=== PATIENT | female | born 1985 | race American Indian/Alaskan Native ===

== ENCOUNTER 2017-05-23 05:39 | Emergency (ER) | payer MEDICAID ==
[2017-05-23 06:57] LABS: Alanine Aminotransferase 9 units/L (7-56); Albumin 3.9 g/dL (3.9-5); BUN/Creatinine Ratio 13; Blood Urea Nitrogen 8 mg/dL (7-17); Calcium 9.3 mg/dL (8.4-10.2); Hemolysis Index 0
[2017-05-23 07:05] LABS: Basophils % (Auto) 0.4 % (0.0-1.8); Eosinophils # (Auto) 0.1 K/mm3 (0.0-0.4); Eosinophils % (Auto) 1.1 % (0.0-4.3); Hematocrit 42.2 % (30.3-42.9); Hemoglobin 13.1 gm/dl (10.1-14.3); Lymphocytes # (Auto) 2.1 K/mm3 (1.2-5.4); Lymphocytes % (Auto) 23.3 % (13.4-35.0); Mean Corpuscular HGB Conc 31 % (30-34); Mean Corpuscular Volume 80 fl (79-97); Monocytes # (Auto) 0.5 K/mm3 (0.0-0.8); Monocytes % (Auto) 5.6 % (0.0-7.3); Platelet Count 344 K/mm3 (140-440); Red Blood Count 5.31 M/mm3 (3.65-5.03); Red Cell Distribution Width 14.5 % (13.2-15.2)
[2017-05-23 07:22] LABS: Bilirubin,Urine NEG (Negative); Blood,Urine MOD (Negative); Color,Urine Yellow (Yellow); Mucus,Urine FEW /HPF; Protein,Urine <15 mg/dL mg/dL (Negative); Urobilinogen,Urine < 2.0 mg/dL (<2.0)
[2017-05-23 07:23] LABS: Mean Corpuscular Hemoglobin 25 pg (28-32)
--- NOTE | 2017-05-23 07:31 | Emergency Department Report ---
HPI - General Chief Complaint: Abdominal Pain Time Seen by Provider: 05/23/17 07:13 - HPI HPI: Room 7 The patient is a 32-year-old female presented with a chief complaint of abdominal pain. Patient states yesterday she developed right lower quadrant abdominal pain has been constant dull and aching in nature. The patient states pain is gradually worsened. Patient denies nausea vomiting or diarrhea. Patient denies fever. Patient does admit to anorexia. Patient denies previous episodes of same pain. The patient currently gives her pain score of 4-5/10. Location: Right lower quadrant Duration: Constant since yesterday Quality: Aching Severity: 4-5/10 Modifying factors: [see above] Context: [see above] Mode of transportation: The patient drove herself to the emergency department and there are no visitors present ED Past Medical Hx - Past Medical History Previous Medical History?: Yes Hx Hypertension: Yes Hx Asthma: Yes - Surgical History Past Surgical History?: No Additional Surgical History: VSD repair as a child - Family History Family history: no significant - Social History Smoking Status: Never Smoker Substance Use Type: None (denies illicit drug use) - Medications Home Medications: Home Medications Medication Instructions Recorded Confirmed Last Taken Type Acetaminophen [Tylenol] 650 mg PO Q4H PRN #50 tablet 06/23/13 Unknown Rx Albuterol Sulfate [Ventolin HFA] 2 puff IH Q6H PRN 06/23/13 06/23/13 Unknown History Metoclopramide HCl [Reglan] 10 mg PO Q6H PRN #20 tablet 06/23/13 Unknown Rx Pnv95/Ferrous Fumarate/FA 1 each PO QDAY #30 tablet 06/23/13 Unknown Rx [ Vitamins] Famotidine [Pepcid] 20 mg PO BID #40 tablet 11/04/13 Unknown Rx Ibuprofen [Motrin] 600 mg PO Q8H PRN #60 tablet 11/04/13 Unknown Rx Ondansetron [Zofran] 4 mg PO Q6HR PRN #20 tablet 11/04/13 Unknown Rx metroNIDAZOLE [Flagyl] 500 mg PO Q8HR #21 tablet 05/23/17 Unknown Rx traMADol [Ultram] 50 mg PO Q6HR PRN #14 tablet 05/23/17 Unknown Rx ED Review of Systems ROS: Stated complaint: RT ABD PAIN Other details as noted in HPI Constitutional: denies: fever Gastrointestinal: abdominal pain, other (anorexia). denies: nausea, vomiting, diarrhea Musculoskeletal: denies: back pain Physical Exam - Physical Exam Vital Signs: Vital Signs 05/23/17 06:12 Temperature 97.6 F Pulse Rate 94 H Respiratory 18 Rate Blood Pressure 134/80 O2 Sat by Pulse 98 Oximetry Physical Exam: GENERAL: The patient is well-developed well-nourished female sitting in chair not appear to be in acute distress HEENT: Normocephalic. Atraumatic. Extraocular motions are intact. Patient has moist mucous membranes. NECK: Supple. Trachea midline CHEST/LUNGS: Clear to auscultation. There is no respiratory distress noted. HEART/CARDIOVASCULAR: Regular. There is no tachycardia. There is no gallop rub or murmur. ABDOMEN: Abdomen is soft, with tenderness to palpation in the right lower quadrant. Patient has normal bowel sounds. There is no abdominal distention. SKIN: There is no rash. There is no edema. There is no diaphoresis. NEURO: The patient is awake, alert, and oriented. The patient is cooperative. The patient has normal speech and gait. MUSCULOSKELETAL: There is trace right CVA tenderness. There is no evidence of acute injury. ED Course Vital Signs 05/23/17 06:12 Temperature 97.6 F Pulse Rate 94 H Respiratory 18 Rate Blood Pressure 134/80 O2 Sat by Pulse 98 Oximetry ED Medical Decision Making - Lab Data Result diagrams: 05/23/17 06:17 05/23/17 06:17 Laboratory Tests 05/23/17 05/23/17 05/23/17 06:17 06:17 06:17 WBC 9.2 RBC 5.31 H Hgb 13.1 Hct 42.2 MCV 80 MCH 25 L MCHC 31 RDW 14.5 Plt Count 344 Lymph % (Auto) 23.3 [place] % (Auto) 5.6 Eos % (Auto) 1.1 Baso % (Auto) 0.4 Lymph # 2.1 [place] # 0.5 Eos # 0.1 Baso # 0.0 Seg Neutrophils % 69.6 Seg Neutrophils # 6.4 Sodium 140 Potassium 4.1 Chloride 101.0 Carbon Dioxide 26 Anion Gap 17 BUN 8 Creatinine 0.6 L Estimated GFR > 60 BUN/Creatinine Ratio 13 Glucose 110 H Calcium 9.3 Total Bilirubin 0.20 AST 13 ALT 9 Alkaline Phosphatase 103 Total Protein 7.5 Albumin 3.9 Albumin/Globulin Ratio 1.1 HCG, Qual Negative Urine Color Urine Turbidity Urine pH Ur Specific [place] Urine Protein Urine Glucose (UA) Urine Ketones Urine Blood Urine Nitrite Urine Bilirubin Urine Urobilinogen Ur Leukocyte Esterase Urine WBC (Auto) Urine RBC (Auto) U Epithel Cells (Auto) Urine Mucus 05/23/17 Unknown WBC RBC Hgb Hct MCV MCH MCHC RDW Plt Count Lymph % (Auto) [place] % (Auto) Eos % (Auto) Baso % (Auto) Lymph # [place] # Eos # Baso # Seg Neutrophils % Seg Neutrophils # Sodium Potassium Chloride Carbon Dioxide Anion Gap BUN Creatinine Estimated GFR BUN/Creatinine Ratio Glucose Calcium Total Bilirubin AST ALT Alkaline Phosphatase Total Protein Albumin Albumin/Globulin Ratio HCG, Qual Urine Color Yellow Urine Turbidity Clear Urine pH 6.0 Ur Specific [place] 1.025 Urine Protein <15 mg/dl Urine Glucose (UA) Neg Urine Ketones Neg Urine Blood Mod Urine Nitrite Neg Urine Bilirubin Neg Urine Urobilinogen < 2.0 Ur Leukocyte Esterase Tr Urine WBC (Auto) 1.0 Urine RBC (Auto) 3.0 U Epithel Cells (Auto) 1.0 Urine Mucus Few - Radiology Data Radiology results: report reviewed (CT abdomen and pelvis), image reviewed (CT abdomen and pelvis) CT abdomen and pelvis (read by radiologist)-questionable colitis/thickened colon transverse colon. Normal appendix - Differential Diagnosis appendicitis, UTI, ectopic Critical care attestation.: If time is entered above; I have spent that time in minutes in the direct care of this critically ill patient, excluding procedure time. ED Disposition Clinical Impression: Abdominal pain Disposition: TO HOME OR SELFCARE Is pt being admited?: No Does the pt Need Aspirin: No Condition: Stable Instructions: Abdominal Pain (ED), Infectious Colitis (ED) Additional Instructions: Return to the emergency department immediately should you develop worsening symptoms, fever, inability to tolerate food or liquid or any other concerns. Prescriptions: metroNIDAZOLE [Flagyl] 500 mg PO Q8HR #21 tablet traMADol [Ultram] 50 mg PO Q6HR PRN #14 tablet PRN Reason: Pain Referrals: GALLO MENDEZ MD [Staff Physician] - 3-5 Days (Dr. Mendez is a set up mechanic stamping machines. Please follow up with him for further evaluation) Time of Disposition: 09:16
--- NOTE | 2017-05-23 09:04 | Cat Scan Report ---
CT ABDOMEN AND PELVIS WITH CONTRAST INDICATION: Right lower quadrant abdominal pain. COMPARISON: None similar. FINDINGS: Abdomen and pelvis CT performed following intravenous administration of 100 cc of Omnipaque 300. LUNG BASES: Slight nonspecific air filled distal esophageal prominence. ABDOMEN: A 5 mm indeterminate right hepatic hypodensity, axial image 20, series 2. Otherwise unremarkable liver, spleen, gallbladder, pancreas, adrenals, aorta, IVC and kidneys. No ascites or size significant adenopathy. Nonopacified GI tract evaluation limited, though small bowel grossly nonobstructive. Normal appendix. Mild ascending colon stool. Transverse colon decompressed with nonspecific exaggerated wall thickness, more so prominent along its proximal and mid extent, axial images 30-40. Descending colon also decompressed and grossly unremarkable. Small fat containing umbilical hernia with a transverse neck of 0.8 cm. PELVIS: Urinary bladder, uterus, adnexa/ovaries and the rectosigmoid demonstrate normal CT appearance. No free fluid or significant adenopathy. Sclerosis along aspect of the SI joints, right more than left. Slight lower lumbar facet arthropathy. CONCLUSION: 1. Subtle colitis questioned in this patient with a normal appendix, as described. Please correlate. 2. Few other incidental findings, as above. Thank you for the opportunity to participate in this patient's care.
[2017-05-23 10:29] VITALS: BP 127/71
== END 2017-05-23 09:45 | disposition home or self-care (01) ==
LOC: ED 05:39
DX: R10.31 Right lower quadrant pain (principal); I10 Essential (primary) hypertension
CPT/HCPCS: 36415; 74177; 80053; 81001; 84703; 85025; 99284; Q9967

== ENCOUNTER 2018-10-18 08:10 | Emergency (ER) | payer MEDICAID ==
[2018-10-18 08:23] VITALS: BP 143/85
[2018-10-18] MEDS ORDERED: NACL 0.9% 1000 ML 1,000 ML IV ONE (09:02)
[2018-10-18] MEDS ORDERED: REGLAN IV ONE (09:02)
[2018-10-18] MEDS ORDERED: MORPHINE IV ONE (09:02)
[2018-10-18] MEDS ORDERED: BENADRYL IV ONE (09:02)
[2018-10-18] MEDS ORDERED: TORADOL IV ONE (09:04)
[2018-10-18] MEDS ORDERED: DECADRON IV ONE (09:04)
--- NOTE | 2018-10-18 09:12 | Emergency Department Report ---
ED Headache HPI - General Chief Complaint: Headache Stated Complaint: DIZZY/HEADACHE Time Seen by Provider: 10/18/18 08:57 - History of Present Illness Initial Comments: Liliana is a 33 year old female history hypertension, asthma and migraine headaches who presents with headache and dizziness for the past 2 days. Gradual onset of headache on . Slight improvement with Goody's powder. However headache has been persistently on 24 hours. This headache is different because it lasted longer than a day. She has headaches every 3 months or so. Normally the headache lasts one day. She has throbbing headache at the right frontal region. Also has a headache at occipital region. When she lays down the headache is relieved. However when she stands up the headache returns. She has lightheadedness. Positive nausea. No vomiting. No visual changes. No fever. PCP Dr. Lisandro Sepulveda. She lives with her boyfriend and daughter. She works in retail. No new social stressors. Timing/Duration: other (2 days since ) Quality: moderate Head Injury Location: frontal, occipital Recent Head Trauma: frequent headaches, occasional headaches Modifying Factors: improves with: other (normally dark room improves headaches) Associated Symptoms: other (nausea and dizziness) Allergies/Adverse Reactions: Allergies codeine Allergy (Verified 06/23/13 08:10) Rash hydrocodone Allergy (Verified 06/23/13 08:10) Rash Home Medications: Ambulatory Orders Acetaminophen [Tylenol] 650 mg PO Q4H PRN #50 tablet 06/23/13 Albuterol Sulfate [Ventolin HFA] 2 puff IH Q6H PRN 06/23/13 Metoclopramide HCl [Reglan] 10 mg PO Q6H PRN #20 tablet 06/23/13 Pnv95/Ferrous Fumarate/FA [ Vitamins] 1 each PO QDAY #30 tablet 06/23/13 Famotidine [Pepcid] 20 mg PO BID #40 tablet 11/04/13 Ibuprofen [Motrin] 600 mg PO Q8H PRN #60 tablet 11/04/13 Ondansetron [Zofran] 4 mg PO Q6HR PRN #20 tablet 11/04/13 metroNIDAZOLE [Flagyl] 500 mg PO Q8HR #21 tablet 05/23/17 traMADol [Ultram] 50 mg PO Q6HR PRN #14 tablet 05/23/17 Butalb/Acetaminophen/Caffeine [Fioricet 50-300-40 mg CAP] 1 cap PO Q6HR PRN #10 cap 10/18/18 Promethazine [Phenergan] 25 mg PO Q6HR PRN #10 tab 10/18/18 ED Review of Systems ROS: Stated complaint: DIZZY/HEADACHE Other details as noted in HPI Comment: All other systems reviewed and negative Constitutional: denies: fever, malaise Respiratory: denies: cough Neurological: headache. denies: numbness, paresthesias ED Past Medical Hx - Past Medical History Previous Medical History?: Yes Hx Hypertension: Yes Hx Asthma: Yes - Surgical History Past Surgical History?: Yes Additional Surgical History: VSD - Social History Smoking Status: Never Smoker Substance Use Type: None - Medications Home Medications: Home Medications Medication Instructions Recorded Confirmed Last Taken Type Acetaminophen [Tylenol] 650 mg PO Q4H PRN #50 tablet 06/23/13 Unknown Rx Albuterol Sulfate [Ventolin HFA] 2 puff IH Q6H PRN 06/23/13 06/23/13 Unknown History Metoclopramide HCl [Reglan] 10 mg PO Q6H PRN #20 tablet 06/23/13 Unknown Rx Pnv95/Ferrous Fumarate/FA 1 each PO QDAY #30 tablet 06/23/13 Unknown Rx [ Vitamins] Famotidine [Pepcid] 20 mg PO BID #40 tablet 11/04/13 Unknown Rx Ibuprofen [Motrin] 600 mg PO Q8H PRN #60 tablet 11/04/13 Unknown Rx Ondansetron [Zofran] 4 mg PO Q6HR PRN #20 tablet 11/04/13 Unknown Rx metroNIDAZOLE [Flagyl] 500 mg PO Q8HR #21 tablet 05/23/17 Unknown Rx traMADol [Ultram] 50 mg PO Q6HR PRN #14 tablet 05/23/17 Unknown Rx Butalb/Acetaminophen/Caffeine 1 cap PO Q6HR PRN #10 cap 10/18/18 Unknown Rx [Fioricet 50-300-40 mg CAP] Promethazine [Phenergan] 25 mg PO Q6HR PRN #10 tab 10/18/18 Unknown Rx ED Physical Exam - General Limitations: No Limitations General appearance: alert, in no apparent distress - Head Head exam: Present: atraumatic, normocephalic - Eye Eye exam: Present: normal appearance - ENT ENT exam: Present: mucous membranes moist - Neck Neck exam: Present: normal inspection, full ROM - Respiratory Respiratory exam: Present: normal lung sounds bilaterally, wheezes, rales, r honchi. Absent: respiratory distress - Cardiovascular Cardiovascular Exam: Present: regular rate, normal rhythm, normal heart sounds. Absent: systolic murmur, diastolic murmur, rubs, gallop - GI/Abdominal GI/Abdominal exam: Present: soft, normal bowel sounds. Absent: distended, tenderness, guarding, rebound - Extremities Exam Extremities exam: Present: normal inspection - Back Exam Back exam: Present: normal inspection - Neurological Exam Neurological exam: Present: alert, oriented X3 - Psychiatric Psychiatric exam: Present: normal affect, normal mood - Skin Skin exam: Present: warm, dry, intact, normal color. Absent: rash ED Course Vital Signs 10/18/18 08:19 Temperature 97.8 F Pulse Rate 79 Respiratory 18 Rate Blood Pressure 143/85 O2 Sat by Pulse 98 Oximetry ED Medical Decision Making - Medical Decision Making Liliana presents with headache, consistent yet longer than ypical migraine. I do not suspect dangerous form of headache such as meningitis, intracranial hemorrhage or pseudotumor cerebri. Headache improved with multiple medications provided in the ED. I have provided prescription for Fioricet and promethazine. I strongly advised close follow-up with her PCP Dr. Negrete this week. Critical care attestation.: If time is entered above; I have spent that time in minutes in the direct care of this critically ill patient, excluding procedure time. ED Disposition Clinical Impression: Migraine headache Disposition: DC-01 TO HOME OR SELFCARE Is pt being admited?: No Does the pt Need Aspirin: No Condition: Stable Instructions: Migraine Headache (ED) Additional Instructions: Please see Dr. Negrete this week. Prescriptions: Butalb/Acetaminophen/Caffeine [Fioricet 50-300-40 mg CAP] 1 cap PO Q6HR PRN #10 cap PRN Reason: Headache Promethazine [Phenergan] 25 mg PO Q6HR PRN #10 tab PRN Reason: Nausea/headache Forms: Work/School Release Form(ED)
== END 2018-10-18 10:27 | disposition home or self-care (01) ==
LOC: ED 08:10
DX: G43.909 Migraine, unspecified, not intractable, without status migrainosus (principal); R42 Dizziness and giddiness; I10 Essential (primary) hypertension; J45.909 Unspecified asthma, uncomplicated; Z98.890 Other specified postprocedural states; Z79.899 Other long term (current) drug therapy; Z88.6 Allergy status to analgesic agent
CPT/HCPCS: 96361; 96374; 96375; 99282; J1100; J1200; J1885; J2270; J2765; J7030

== ENCOUNTER 2019-06-08 10:30 | Emergency (ER) | payer MEDICAID, OTHER ==
[2019-06-08 10:47] VITALS: BP 133/77
--- NOTE | 2019-06-08 13:38 | Emergency Department Report ---
Chief Complaint: Headache Stated Complaint: MIGRAINE/WEAKNESS RT SIDE Time Seen by Provider: 06/08/19 13:32 - HPI History of Present Illness: 34-year-old -[place] female presents to the emergency room for migraines headaches x6 weeks and reported weakness. Patient states that she was seen by her neurologist on Saturday she is had a CT scan and MRA. Patient states that she saw her primary care provider today and was sent to the emergency room for concerns of left side weakness. Patient states that her headache is located on her left side and is 5 out of 10. Patient denies any nausea vomiting. Patient reports she also sees a chiropractor. - Exam Vital Signs: Vital Signs 06/08/19 10:44 Temperature 97.9 F Pulse Rate 86 Respiratory 18 Rate Blood Pressure 133/77 O2 Sat by Pulse 98 Oximetry Physical Exam: Gen: alert oriented NAD Cardic: regular rate and rhythm no murmurs appreciated Resp: Clear to auscultation bilateral no wheezing no rales or rhonchi. Abdomen: Soft nontender nondistended normal bowel sounds. Mini neuro: Normal finger to nose exam, [id number] normal, Romberg neg, strengh 4/5 all extrimities, Alert and oriented time 3 Crainal nerve II-IIX intact MSE screening note: Focused history and physical exam performed. Due to findings the following was ordered: 34-year-old -[place] female presents to the emergency room for migraines headaches x6 weeks and reported weakness. Patient states that she was seen by her neurologist on Saturday she is had a CT scan and MRA. Patient states that she saw her primary care provider today and was sent to the emergency room for concerns of left side weakness. Patient states that her headache is located on her left side and is 5 out of 10. Patient denies any nausea vomiting. Patient reports she also sees a chiropractor. I discussed with patient that she is followed by a neurologist a primary care provider and a chiropractor. I discussed with patient to continue with the increase of Topamax that was told to you today by your primary care provider. Discussed to follow back up with your neurologist. Patient has had a normal neurological examination with no deficits. ED Disposition for MSE Disposition: MED SCREENING EXAM-LEFT Is pt being admited?: No Does the pt Need Aspirin: No Condition: Stable Additional Instructions: Please continue taking your migraine medication as prescribed by your neurolog ist and primary care provider. Please follow-up with your neurologist. Referrals: PRIMARY CARE,MD [Primary Care Provider] - 3-5 Days Your,neurologist [Other] - 3-5 Days
== END 2019-06-08 13:40 | disposition left against medical advice (07) ==
LOC: ED 10:30
DX: R51 Headache (principal); R53.1 Weakness
CPT/HCPCS: 99281